=== PATIENT | female | born 1940 | race Caucasian/White ===

== ENCOUNTER → 2016-12-31 | Outpatient (REF) ==
[~2016-12-31] MED LIST: ANTIVERT 25MG25 MG PO; BYSTOLIC5 MG PO; CALCIUM500 MG PO; DYAZIDE 25 MG-31 CAP PO; KLOR-CON M1010 MEQ PO; MAGNESIUM250 M1 PO; MEVACOR40 MG PO; NORCO 325 MG-7.1 TAB PO; PEPCID 20MG TAB20 MG PO; PHENERGAN 25 TA25 MG PO; PREDNISONE20 MG PO; PRIL40 PO; SYNTHROID0.05 MG/TA PO
== END ==
LOC: ZLAB.WCH 18:14
DX: Z01.89 Encounter for other specified special examinations (principal)

== ENCOUNTER → 2017-03-10 | Outpatient (CLI) | payer MEDICARE, BC | LOC: MC.RAD 08:00 | DX: Z12.31 Encounter for screening mammogram for malignant neoplasm of breast (principal) ==

== ENCOUNTER → 2017-06-03 | Outpatient (CLI) | payer MEDICARE, BC | LOC: COL.VAS 10:58 | DX: I08.1 Rheumatic disorders of both mitral and tricuspid valves (principal) ==

== ENCOUNTER → 2018-03-24 | Outpatient (REF) | LOC: ZLAB.WCH 16:12 | DX: Z01.89 Encounter for other specified special examinations (principal) ==

== ENCOUNTER → 2018-03-26 | Outpatient (REF) | LOC: ZLAB.WCH 08:51 | DX: Z01.89 Encounter for other specified special examinations (principal) ==

== ENCOUNTER → 2018-05-06 | Outpatient (CLI) | payer MEDICARE, BC | LOC: MC.RAD 07:59 | DX: Z12.31 Encounter for screening mammogram for malignant neoplasm of breast (principal) ==

== ENCOUNTER 2018-10-22 11:15 | Outpatient (RCR) | payer MEDICARE, BC | END 2018-10-22 12:43 | disposition home or self-care (01) | LOC: MKS.ESL.OT 11:15 | DX: S62.617A Displaced fracture of proximal phalanx of left little finger, initial encounter for closed fracture (principal) ==

== ENCOUNTER → 2019-06-10 | Outpatient (CLI) | payer MEDICARE, BC | LOC: MC.RAD 08:15 | DX: Z12.31 Encounter for screening mammogram for malignant neoplasm of breast (principal); N64.89 Other specified disorders of breast ==

== ENCOUNTER → 2020-06-27 | Outpatient (CLI) | payer MEDICARE, BC | LOC: MC.RAD 09:15 | DX: Z12.31 Encounter for screening mammogram for malignant neoplasm of breast (principal) ==

== ENCOUNTER → 2021-08-07 | Outpatient (CLI) | payer MEDICARE, BC | LOC: MC.RAD 09:00 | DX: Z12.31 Encounter for screening mammogram for malignant neoplasm of breast (principal) ==

== ENCOUNTER → 2022-09-09 | Outpatient (REF) | LOC: COL.CARD 10:59 | DX: Z01.810 Encounter for preprocedural cardiovascular examination (principal) ==

== ENCOUNTER → 2022-09-20 | Outpatient (CLI) | payer MEDICARE, BC | LOC: MC.RAD 09:04 | DX: Z12.31 Encounter for screening mammogram for malignant neoplasm of breast (principal) ==

== ENCOUNTER → 2023-10-16 | Outpatient (CLI) | payer MEDICARE, BC | LOC: MC.RAD 09:14 | DX: Z12.31 Encounter for screening mammogram for malignant neoplasm of breast (principal); N64.89 Other specified disorders of breast ==

== ENCOUNTER → 2023-10-21 | Outpatient (CLI) | payer MEDICARE, BC | LOC: MC.RAD 12:50 | DX: N64.89 Other specified disorders of breast (principal) ==